=== PATIENT | male | born 1980 | race Caucasian/White ===

== ENCOUNTER 2021-05-25 08:12 | Emergency (ER) | payer OTHER ==
[2021-05-25] MEDS ORDERED: Albuterol 8 GM Inhaler INH STA (08:46)
--- NOTE | 2021-05-25 08:49 | EDM.PDOC ---
ED HPI GENERAL MEDICAL PROBLEM - General Chief Complaint: Respiratory Problem Stated Complaint: CHEST PAIN, BREATHING PROBLEMS Time Seen by Provider: 05/25/21 08:14 - History of Present Illness INITIAL COMMENTS - FREE TEXT/NARRATIVE: History of present illness: [] The patient has 3 episodes of shortness of breath in the last 3 weeks. The last 1 before today was last Wednesday. He woke up at 4 AM short of breath today. He does not really have cough fever or chills. The patient does not have diaphoresis nausea or pain. He has a funny feeling in his upper abdomen and a tightness in his chest at times. The patient had an episode 11 years ago where he had the same thing with exertion and it went away on its own. He was never evaluated for it. He was told when he was a child that he had asthma but does not remember ever having an inhaler. 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 The patient smokes cannabinoids. He does not smoke tobacco. He rarely drinks but a week ago he had more than usual. The patient has no prolonged immobilization. 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 The patient's personal and family history are negative for thromboembolic disease. The patient's not diabetic not hypertensive and does not have high cholesterol. He works out and is in reasonably good shape. The father had coronary vessel disease issues in his later years and was a smoker of tobacco at times. This patient was seen and evaluated during the 2019 SARS-CoV-2 novel coronavirus pandemic period. Community viral transmission is ongoing at time of this encounter and the emergency department is operating under pandemic response procedures. Review of systems: As per history of present illness and below otherwise all systems reviewed and negative. Past medical history: As per history of present illness and as reviewed below otherwise noncontributory. Surgical history: As per history of present illness and as reviewed below otherwise noncontributory. Social history: No reported history of drug or alcohol abuse. Family history: As per history of present illness and as reviewed below otherwise noncontributory. Physical exam: Constitutional - well developed, well-nourished and in no acute distress HEENT - normocephalic, no evidence of trauma - external nose and mouth normal - no mass in neck and no JVD - mucosae moist EYES - full EOM, PERRL, no icterus - no evidence of inflammation, injection, or drainage Respiratory - no respiratory distress, equal bilateral expansion, lungs diminished throughout with wheezes in the apices. Cardiovascular - Regular Rhythm with S1 and S2 appreciated and no murmur, gallop or rub. GI - abdomen soft without distension or organomegaly - normal bowel sounds - no guard or rebound Musculoskeletal no gross deformity of long bones or joints - no tenderness, swelling or edema Neurologic - Alert and oriented times four - CN II-XII grossly intact - motor sensory and coordination symmetrically normal Psychiatric - appropriate mood and affect with normal thought content Hematologic - No petechiae or purpura - mucosa appropriate color and sclera not pale - normal nail bed color and refill Integument - no rash or evidence of trauma - normal turgor Diagnostics: [] Therapeutics: [] Impression: [] Plan: [] Definitive disposition and diagnosis as appropriate pending reevaluation and review of above. - Related Data Allergies Allergy/AdvReac Type Severity Reaction Status Date / Time No Known Allergies Allergy Verified 05/25/21 08:27 Home Meds: Home Meds . [No Known Home Meds] 05/25/21 [History] Past Medical History - Past Health History Medical/Surgical History: Denies Medical/Surgical History - Infectious Disease History Infectious Disease History: Reports: Chicken Pox Social & Family History - Family History Family Medical History: No Pertinent Family History - Tobacco Use Tobacco Use Status *Q: Never Tobacco User - Caffeine Use Caffeine Use: Reports: Coffee - Recreational Drug Use Recreational Drug Type: Reports: Marijuana/Hashish ED ROS GENERAL - Review of Systems Review Of Systems: Comprehensive ROS is negative, except as noted in HPI. ED EXAM, GENERAL - Physical Exam Exam: See Below Free Text/Narrative:: My physical exam is in the HPI Course - Vital Signs Text/Narrative:: 05 10-the patient felt better after the inhaler. Lungs are clear. I had the patient walk 50 feet 4 times and his oxygen saturation is 96% and his lungs are still clear. Last Recorded V/S: Last Vital Signs Temp 35.5 C L 05/25/21 08:19 Pulse 53 L 05/25/21 09:15 Resp 18 05/25/21 09:15 BP 128/80 05/25/21 09:15 Pulse Ox 99 05/25/21 09:15 - Orders/Labs/Meds Orders: Active Orders 24 hr Category Date Time Status RT Post Treatment Assessment [RC] Click to Edit Care 05/25/21 08:46 Active RT Pre-Treatment Assessment [RC] Click to Edit Care 05/25/21 08:46 Active Meds: Medications Discontinued Medications Generic Name Dose Route Start Last Admin Trade Name Silver PRN Reason Stop Dose Admin Albuterol 8 gm 05/25/21 08:46 05/25/21 09:18 Albuterol 8 Gm Inhaler INH 05/25/21 08:47 2 inhalation ONETIME STA Administration Departure - Departure Time of Disposition: Disposition: Home, Self-Care 01 Condition: Good Clinical Impression: Bronchospasm - Discharge Information Instructions: Bronchospasm, Adult, [id number] Referrals: PCP,None [Primary Care Provider] - Forms: ED Department Discharge Additional Instructions: Stay well-hydrated, avoid noxious substances, wear a surgical mask if you are around smoke smog or something it irritates your lungs. Try to avoid smoking anything. [facility] [address] [place] [address] [place] [address] The following information is given to patients seen in the emergency department who are being discharged to home. This information is to outline your options for follow-up care. We provide all patients seen in our emergency department with a follow-up referral. The need for follow-up, as well as the timing and circumstances, are variable depending upon the specifics of your emergency department visit. If you don't have a primary care physician on staff, we will provide you with a referral. We always advise you to contact your personal physician following an emergency department visit to inform them of the circumstance of the visit and for follow-up with them and/or the need for any referrals to a consulting specialist. The emergency department will also refer you to a specialist when appropriate. This referral assures that you have the opportunity for follow-up care with a specialist. All of these measure are taken in an effort to provide you with optimal care, which includes your follow-up. Under all circumstances we always encourage you to contact your private physician who remains a resource for coordinating your care. When calling for follow-up care, please make the office aware that this follow-up is from your recent emergency room visit. If for any reason you are refused follow-up, please contact the [facility] Emergency Department at and asked to speak to the emergency department charge nurse. Sepsis Event Note (ED) - Focused Exam Vital Signs: Vital Signs Temp Pulse Resp BP Pulse Ox 05/25/21 09:15 53 L 18 128/80 99 05/25/21 08:19 35.5 C L 48 L 16 128/80 96 - My Orders Last 24 Hours: My Active Orders 05/25/21 08:46 RT Post Treatment Assessment [RC] Click to Edit RT Pre-Treatment Assessment [RC] Click to Edit - Assessment/Plan Last 24 Hours: My Active Orders 05/25/21 08:46 RT Post Treatment Assessment [RC] Click to Edit RT Pre-Treatment Assessment [RC] Click to Edit
== END 2021-05-25 09:40 | disposition home or self-care (01) ==
LOC: MW.ED 08:12
DX: J98.01 Acute bronchospasm (principal)
CPT/HCPCS: 99284; A9270